=== PATIENT | female | born 1980 | race Caucasian/White ===

== ENCOUNTER 2021-01-06 18:33 | Inpatient (IN) | payer SELFPAY ==
[~2021-01-06] VITALS: Ht 157.5 cm; Wt 106.0 kg
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
--- NOTE | 2021-01-06 19:20 | NUR ---
lab at bedside-blood cultures x2
[2021-01-06] MEDS ORDERED: HYDROcodone/APAP 5/325 TABLET PO ONE (19:30)
--- NOTE | 2021-01-06 19:35 | NUR ---
Radiology at bedside
[2021-01-06] MEDS ORDERED: HYDROcodone/APAP 5/325 TABLET ONE (19:44)
[2021-01-06 19:59] LABS: ANION GAP 9 mmol/L (5-15); CHLORIDE 108 mmol/L (98-107); CREATININE 0.82 mg/dL (0.55-1.02)
[2021-01-06] MEDS ORDERED: VANCOMYCIN PER PHARMACY MC ONE (20:00)
[2021-01-06 20:02] LABS: BASOPHILS % (AUTO) 1 % (0-1); EOSINOPHILS % (AUTO) 3 % (1-7); LYMPHOCYTES % (AUTO) 32 % (22-44); MEAN CORPUSCULAR HEMOGLOBIN 32.7 pg (27.0-34.8); MEAN CORPUSCULAR HGB CONC 34.6 g/dL (32.4-35.8); MEAN PLATELET VOLUME 7.2 fL (7.4-10.4); MONOCYTES % (AUTO) 6 % (2-9); NEUTROPHILS % (AUTO) 58 % (42-75); PLATELET COUNT 249 x10^3/uL (130-400); RED BLOOD COUNT 4.32 x10^6/uL (3.82-5.3); RED CELL DISTRIBUTION WIDTH 13.6 % (9.6-15.2)
[2021-01-06 20:09] LABS: MD NO
--- NOTE | 2021-01-06 20:27 | NUR ---
yehuda requested from pharmacy
[2021-01-06] MEDS ORDERED: NICOTINE 21 MG/24 HR PATCH.TD24 TD ONE (20:30)
[2021-01-06] MEDS ORDERED: SODIUM CHLORIDE FLUSH 10ML SYR IVF PRN (20:30)
[2021-01-06] MEDS ORDERED: PIPERACILLIN/TAZO 4.5 GM in DEXTROSE 5% 100 ML IVPB ONE (20:30)
[2021-01-06] MEDS ORDERED: NICOTINE 21 MG/24 HR PATCH.TD24 ONE (20:32)
--- NOTE | 2021-01-06 20:58 | NUR ---
DRINK 4 BEERS/4 SHOTS EACH DAY
[2021-01-06] MEDS ORDERED: VANCOMYCIN 2,000 MG in SODIUM CHLORIDE 0.9% 500 ML IV ONE ×2 (21:00→23:00)
[2021-01-06 21:41] VITALS: BP 171/105
[2021-01-06 22:19] LABS: HCT (SEDRATE) 40.9 % (34.6-47.8)
[2021-01-06] MEDS ORDERED: VANCOMYCIN PER PHARMACY MC PRN (22:30)
[2021-01-06] MEDS ORDERED: THIAMINE 100 MG in DEXTROSE 5% 50 ML IVPB SCH (22:30)
[2021-01-06] MEDS ORDERED: morphine SULFATE 10 MG/ML, 1ML IVPush PRN (22:30)
[2021-01-06] MEDS ORDERED: LORazepam 2 MG/ML, 1ML IV PRN ×5 (22:30)
[2021-01-06] MEDS ORDERED: NICOTINE 14MG/24 HR PATCH.TD24 TD ONE (22:30)
[2021-01-06] MEDS ORDERED: ACETAMINOPHEN 325 MG TABLET PO PRN (22:30)
[2021-01-06] MEDS ORDERED: FOLIC ACID 1 MG TABLET PO ONE (22:30)
[2021-01-06] MEDS ORDERED: HYDROcodone/APAP 5/325 TABLET PO PRN (22:30)
[2021-01-06] MEDS ORDERED: ONDANSETRON 2MG/ML, 2ML IVPush PRN (22:30)
[2021-01-06 22:36] LABS: ALBUMIN 3.5 g/dL (3.4-5.0); BILIRUBIN, DIRECT 0.2 mg/dL (0.1-0.2)
[2021-01-06 22:38] LABS: BILIRUBIN,INDIRECT 0.3 mg/dL (0.0-2.0); BILIRUBIN,TOTAL 0.5 mg/dL (0.2-1.0); TOTAL PROTEIN 7.1 g/dL (6.4-8.2)
[2021-01-07] VITALS: BP 176/125
[2021-01-07] MEDS: LABETALOL 5MG/ML, 20ML IVPush PRN ×2 (00:06→14:50)
[2021-01-07 00:53] VITALS: BP 158/91
[2021-01-07 00:55] LABS: HCG UR SG 1.015 (1.003-1.030)
[2021-01-07 01:07] LABS: AMPHETAMINE SCREEN, URINE Negative (Negative); BARBITURATE SCREEN, URINE Negative (Negative); BENZODIAZEPINE SCREEN, URINE Negative (Negative); CANNABINOID SCREEN, URINE Negative (Negative); COCAINE SCREEN, URINE Negative (Negative); METHADONE SCREEN, URINE Negative (Negative); OPIATE SCREEN, URINE Positive (Negative)
[2021-01-07] MEDS: THIAMINE 100 MG in DEXTROSE 5% 50 ML IVPB SCH (01:49)
[2021-01-07] MEDS ORDERED: PHARMACOKINETIC MONITORING MC PRN (02:00)
[2021-01-07] MEDS ORDERED: PHARMACOKINETIC CONSULTATION MC ONE (02:00)
[2021-01-07] MEDS: PIPERACILLIN/TAZO/PMX 3.375GM 50 ML IV SCH ×4 (03:19→20:53)
[2021-01-07 05:37] LABS: BASOPHILS % (AUTO) 1 % (0-1); EOSINOPHILS % (AUTO) 5 % (1-7); LYMPHOCYTES % (AUTO) 34 % (22-44); MEAN CORPUSCULAR HEMOGLOBIN 32.9 pg (27.0-34.8); MEAN CORPUSCULAR HGB CONC 34.8 g/dL (32.4-35.8); MEAN PLATELET VOLUME 7.3 fL (7.4-10.4); MONOCYTES % (AUTO) 7 % (2-9); NEUTROPHILS % (AUTO) 54 % (42-75); PLATELET COUNT 248 x10^3/uL (130-400); RED BLOOD COUNT 4.19 x10^6/uL (3.82-5.3); RED CELL DISTRIBUTION WIDTH 13.7 % (9.6-15.2)
[2021-01-07 05:38] LABS: ANION GAP 7 mmol/L (5-15); CALCIUM 8.7 mg/dL (8.5-10.1); CHLORIDE 110 mmol/L (98-107); CHOLESTEROL, TOTAL 149 mg/dL (140-239); CREATININE 0.76 mg/dL (0.55-1.02); TRIGLYCERIDES 158 mg/dL (50-200); VLDL CHOLESTEROL 32 mg/dL (0-25)
[2021-01-07 05:40] LABS: CHOL/HDL RATIO 2.2; HDL CHOL % 46 % (28-40); HDL CHOLESTEROL (DIRECT) 68 mg/dL (40-60); LDL CHOLESTEROL,CALCULATED 49 mg/dL (54-169); LDL/HDL RATIO 0.7 (0.5-3.0)
[2021-01-07 05:50] LABS: MD NO
[2021-01-07 08:00] VITALS: BP 161/103
[2021-01-07] MEDS ORDERED: GADOTERATE 10 MMOL/20ML SYR ONE (08:44)
[2021-01-07] MEDS: MULTIVITAMINS/MINERALS TABLET PO SCH (09:49)
[2021-01-07] MEDS: NICOTINE 14MG/24 HR PATCH.TD24 TD SCH (11:10)
[2021-01-07] MEDS: VANCOMYCIN 1,700 MG in SODIUM CHLORIDE 0.9% 250 ML IV SCH ×2 (11:10→22:42)
[2021-01-07 13:54] VITALS: BP 158/117
[2021-01-07] MEDS: GABAPENTIN 300 MG CAPSULE PO SCH ×3 (16:05→20:55)
[2021-01-07 19:15] VITALS: BP 164/106
[2021-01-07 19:17] VITALS: BP 144/92
[2021-01-08 00:43] VITALS: BP 132/83
[2021-01-08] MEDS: THIAMINE 100 MG in DEXTROSE 5% 50 ML IVPB SCH (01:05)
[2021-01-08] MEDS: PIPERACILLIN/TAZO/PMX 3.375GM 50 ML IV SCH ×3 (03:11→15:01)
[2021-01-08 07:54] VITALS: BP 161/94
[2021-01-08] MEDS: GABAPENTIN 300 MG CAPSULE PO SCH ×2 (08:20→16:00)
[2021-01-08] MEDS: MULTIVITAMINS/MINERALS TABLET PO SCH (08:21)
[2021-01-08] MEDS: VANCOMYCIN 1,700 MG in SODIUM CHLORIDE 0.9% 250 ML IV SCH (11:03)
[2021-01-08] MEDS: NICOTINE 14MG/24 HR PATCH.TD24 TD SCH (11:03)
[2021-01-08 12:26] VITALS: BP 166/88
[2021-01-08] MEDS ORDERED: GABA300C PO (18:11)
[2021-01-08] MEDS ORDERED: AMOX1TAB64 PO (18:12)
[2021-01-08] MEDS ORDERED: DOXY100C2 PO (18:15)
== END 2021-01-08 20:24 | disposition home or self-care (01) | DRG 603 ==
LOC: ED 19:52 → EDIP 20:19 → 3N 21:22
PROVIDERS: ADMIT Family Medicine; ATTEND Hospitalist
DX: L03.115 Cellulitis of right lower limb (principal); L97.919 Non-pressure chronic ulcer of unspecified part of right lower leg with unspecified severity; Z68.41 Body mass index [BMI] 40.0-44.9, adult; E66.9 Obesity, unspecified; F10.20 Alcohol dependence, uncomplicated; F17.210 Nicotine dependence, cigarettes, uncomplicated; F32.9 Major depressive disorder, single episode, unspecified; F41.9 Anxiety disorder, unspecified; I10 Essential (primary) hypertension; J45.909 Unspecified asthma, uncomplicated; R26.2 Difficulty in walking, not elsewhere classified
CPT/HCPCS: 36415; 80048; 80061; 80076; 80202; 80307; 81025; 85025; 85651; 86140; 87040; 87070; 87205; 93922; 96374; G0378; J2543; J3370; J3411; A9575; J2060; J7040; J7050

== ENCOUNTER 2021-02-24 18:09 | Emergency (ER) | payer BC ==
[~2021-02-24] VITALS: Ht 157.5 cm; Wt 97.7 kg
[~2021-02-24 18:09] MED LIST: AMOX1TAB64 PO; DOXY100C2 PO; GABA300C PO
[2021-02-24 20:35] VITALS: BP 165/92
== END 2021-02-24 20:37 | disposition home or self-care (01) ==
LOC: ED 18:39
DX: M79.661 Pain in right lower leg (principal); Z76.0 Encounter for issue of repeat prescription; F17.200 Nicotine dependence, unspecified, uncomplicated
CPT/HCPCS: 99281

== ENCOUNTER 2021-05-19 10:26 | Emergency (ER) | payer BC ==
[~2021-05-19] VITALS: Ht 157.5 cm; Wt 95.4 kg
[~2021-05-19 10:26] MED LIST changes: -DOXY100C2 PO; +DOXY100C5 PO
--- NOTE | 2021-05-19 11:15 | NUR ---
PT AMBULATORY TO ROOM FROM LOBBY.
[2021-05-19 11:44] VITALS: BP 165/101
--- NOTE | 2021-05-19 11:46 | NUR ---
PT STATES NEW SCRIPTS PROVIDED NEW SCRIPTS TODAY BY PMD FOR SKIN INFECTION, NAUSEA. PT HASN'T FILLED YET WAS TOLD COME TO ED FOR HTN. BP RECHECKED, 165/101. PT STATES RECENTLY STARTED [place] FOR HTN BUT PMD STATED MAY NEED TO INCREASE DOSE. PT SEEN AT [facility] FOR CHRONIC R LEG WOUND, STATES DOESN'T NEED WOUND ADDRESSED BY ERP. CALL LIGHT WITHIN REACH, VSS/UPDATED IN COMPUTER.
--- NOTE | 2021-05-19 12:21 | NUR ---
ERP IN TO SEE PT.
== END 2021-05-19 13:33 | disposition home or self-care (01) ==
LOC: ED 12:50
DX: Z48.01 Encounter for change or removal of surgical wound dressing (principal); M79.661 Pain in right lower leg; I10 Essential (primary) hypertension
CPT/HCPCS: 99281